=== PATIENT | female | born 1970 | race Caucasian/White ===

== ENCOUNTER 2021-05-01 15:08 | Emergency (ER) | payer OTHER, MEDICAID, SELFPAY ==
[2021-05-01 15:32] VITALS: BP 138/93; PULSE 82; RESP 28; TEMP 36.3; O2SAT 100
--- NOTE | 2021-05-01 15:41 | DI.CT.S_ITS ---
PROCEDURE: CT HEAD/BRAIN WO CON INDICATIONS: WORST headache of life sudden onset right side TECHNIQUE: Noncontrast 4.5 mm thick angled axial sections acquired from the foramen magnum to the vertex, with coronal and sagittal reformats. For radiation dose reduction, the following was used: automated exposure control, adjustment of mA and/or kV according to patient size. COMPARISON: None. FINDINGS: Image quality: Excellent. CSF spaces: Basal cisterns are patent. No extra-axial fluid collections. Ventricles are normal in size and shape. Brain: No midline shift. No intracranial masses or hemorrhage. Hunter-white matter interface is normal. Skull and face: Calvarium and visualized facial bones are intact, without suspicious lesions. Sinuses: Visualized sinuses and mastoids are clear. IMPRESSION: No trauma found, source of very severe headache not identified. Dictated by: Sabino Murphy M.D. on 05/01/2021 at 15:35 Approved by: Sabino Murphy M.D. on 05/01/2021 at 15:35
--- NOTE | 2021-05-01 15:54 | ED_ITS ---
HPI - Headache General Chief Complaint: Headache Stated Complaint: RIGHT SIDE OF NECK Time Seen by Provider: 05/01/21 15:41 Source: patient and family Mode of arrival: Wheelchair Limitations: no limitations History of Present Illness HPI Narrative: Patient is a 51-year-old female who has a history of migraines who presents with sudden-onset worst headache of her life. She apparently was cleaning her friends toilet bowl that had a ring around she used multiple chemicals and she was scrubbing in it suddenly came on. It is on the right side of her head. She was able to leave the bathroom and lying on the floor but progressively got worse. She is crying tearful and holding her head now she is not on any anticoagulation or anti-platelet medication. This is the worst headache of her life. This is very atypical of her migraine headache. Daughter thought she saw some swelling on the right side of her neck. MD Complaint: headache Onset (ago): hour(s) Onset description: sudden Location: right Severity: severe Severity scale (1-10): >10 Quality: sharp, squeezing and constant Relieving factors: nothing Exacerbating factors: none Related Data Home Medications Medication Instructions Recorded Confirmed amitriptyline 25 mg PO HS #0 10/30/16 paroxetine HCl [Paxil] 20 mg PO QDAY #0 10/30/16 Allergies Allergy/AdvReac Type Severity Reaction Status Date / Time lidocaine Allergy Verified 05/01/21 16:06 Review of Systems Review of Systems Narrative: GENERAL: Denies chills, fatigue, malaise, fever, sweats, travel HEENT: Denies sinus pain, ear pain, sore throat, difficulty swallowing, neck pain RESPIRATORY: Denies dyspnea, cough, wheezing, hemoptysis, sputum. CARDIOVASCULAR: Denies chest pain, palpitations, orthopnea, edema GASTROINTESTINAL: Denies nausea, vomiting, abdominal pain, diarrhea, constipation, melena. : Denies dysuria, frequency, incontinence, hematuria, urinary retention, flank pain. MUSCULOSKELETAL: Denies weakness, joint pain, or bony pain SKIN: No rash, no erythema, no pruritus NEUROLOGIC: See HPI PSYCHIATRIC: No concerning psychosocial issues. 12 point review of systems is negative except for those stated above and HPI Patient History Medical History (Updated 05/01/21 @ 18:29 by Molly Daigle DO) Migraines, neuralgic Social History Smoking Status: Current every day smoker Smoking Status: Current every day smoker alcohol intake frequency: 0-2 drinks per day Substance Use Type: does not use Exam Initial Vital Signs Initial Vital Signs: Vital Signs Temperature 97.3 F L 05/01/21 15:32 Pulse Rate 82 05/01/21 15:32 Respiratory Rate 28 H 05/01/21 15:32 Blood Pressure 138/93 H 05/01/21 15:32 Pulse Oximetry 100 05/01/21 15:32 GENERAL: Alert female crying moaning holding right-sided overhead HEENT: Head atraumatic,EOMI, pupils reactive, face symmetric, moist mucous membranes, no bruits on the right neck CARDIOVASCULAR: Regular rate and rhythm without murmurs, rubs or gallops. RESPIRATORY: Breath sounds equal bilaterally, no wheezes rales or rhonchi. ABDOMEN: Soft, nontender. Normoactive bowel sounds all 4 quadrants. No guarding or rebound. EXTREMITIES: Normal range of motion, no clubbing or edema. Neurovascularly intact NEUROLOGICAL: Alert and oriented x4.Normal gait and speech. Cranial nerves II through XII grossly intact. SKIN: Warm, dry, no laceration, no petechiae, no rashes or lesions. Course Orders Ordered: Discontinued Medications Diphenhydramine HCl (Diphenhydramine 50 Mg/Ml Vial) 50 mg IV NOW ONE Stop: 05/01/21 15:47 Last Admin: 05/01/21 16:07 Dose: 50 mg Documented by: [email or web address] Sodium Chloride (Normal Saline 0.9%) 1,000 mls @ 1,000 mls/hr IV BOLUS ONE Stop: 05/01/21 16:45 Last Infusion: 05/01/21 17:45 Dose: 0 mls/hr Documented by: [email or web address] Admin: 05/01/21 16:06 Dose: 1,000 mls/hr Documented by: [email or web address] Ketorolac Tromethamine (Ketorolac 30 Mg/Ml Vial) 30 mg IV NOW ONE Stop: 05/01/21 15:47 Last Admin: 05/01/21 16:07 Dose: 30 mg Documented by: [email or web address] Prochlorperazine (Prochlorperazine 10 Mg/2 Ml Vial) 10 mg IV NOW ONE Stop: 05/01/21 15:47 Last Admin: 05/01/21 16:07 Dose: 10 mg Documented by: [email or web address] Vital Signs Vital signs: Vital Signs - 8 hr 05/01/21 15:32 05/01/21 17:49 Temperature 97.3 F L Pulse Rate 82 66 Respiratory Rate 28 H 14 Blood Pressure 138/93 H 116/58 L Pulse Oximetry 100 100 MDM - Headache Lab Data Attestation: I reviewed the patient's lab results. Result diagrams: 05/01/21 15:53 05/01/21 15:53 Labs: Lab Results 05/01/21 05/01/21 Range/Units 15:53 15:53 WBC 11.8 H (4.5-11.0) X10^3/uL RBC 4.91 (4.0-5.2) X10^6/uL Hgb 13.1 (12.0-16.0) g/dL Hct 41.0 (36-46) % MCV 83.6 (80-100) fL MCH 26.7 (26-34) PG MCHC 31.9 (30-36) % RDW 13.9 (11.6-14.8) % Plt Count 218 (150-400) X10^3/uL Neut % (Auto) 64.2 (50-75) % Lymph % (Auto) 24.6 L (25-40) % Mcpherson % (Auto) 8.3 (3-14) % Eos % (Auto) 2.2 (2-4) % Baso % (Auto) 0.7 (0-2) % Neut # (Auto) 7600 H (2296-8898) /uL Lymph # (Auto) 2900 (0600-1594) /uL Mcpherson # (Auto) 1000 H (0-900) /uL Eos # (Auto) 300 (0-450) /uL Baso # (Auto) 100 (0-100) /uL Sodium 137 (137-145) mmol/L Potassium 4.2 (3.4-5.1) mmol/L Chloride 104 (98-107) mmol/L Carbon Dioxide 28 (22-32) mmol/L BUN 7 (7-17) mg/dL Creatinine 0.69 (0.52-1.04) mg/dL Estimated GFR > 60.0 (>60) mL/min BUN/Creatinine Ratio 10.1 (6-22) Glucose 109 H (70-100) mg/dL Calcium 9.6 (8.4-10.2) mg/dL Total Bilirubin 0.2 (0.2-1.3) mg/dL AST 25 (14-36) IU/L ALT 19 (<35) IU/L Alkaline Phosphatase 108 (38-126) U/L Total Protein 7.0 (6.3-8.2) g/dL Albumin 3.9 (3.5-5.0) g/dL Globulin 3.1 (1.7-4.1) g/dL Albumin/Globulin Ratio 1.3 (1.0-2.8) Imaging Data CT scan - head: Radiologist's Impression: PROCEDURE: CT HEAD/BRAIN WO CON INDICATIONS: WORST headache of life sudden onset right side TECHNIQUE: Noncontrast 4.5 mm thick angled axial sections acquired from the foramen magnum to the vertex, with coronal and sagittal reformats. For radiation dose reduction, the following was used: automated exposure control, adjustment of mA and/or kV according to patient size. COMPARISON: None. FINDINGS: Image quality: Excellent. CSF spaces: Basal cisterns are patent. No extra-axial fluid collections. Ventricles are normal in size and shape. Brain: No midline shift. No intracranial masses or hemorrhage. Hunter-white matter interface is normal. Skull and face: Calvarium and visualized facial bones are intact, without suspicious lesions. Sinuses: Visualized sinuses and mastoids are clear. IMPRESSION: No trauma found, source of very severe headache not identified. Dictated by: Sabino Murphy M.D. on 05/01/2021 at 15:35 MDM Narrative Medical decision making narrative: Patient initially had quite severe sudden- onset headache on the right side concern for hemorrhage. Fortunately her CT was negative. She does have a history of migraine headaches she was given the migraine cocktail which seemed to help significantly. She slept and felt much better. Daughter was asking for a CT angiogram I did offer it to the patient however patient opted not to have it done at this time. I have little concern for aneurysm. I think she was exposed to a number of chemicals which is lead to severe headache she does have a history of migraines as well and it resolved with a migraine cocktail. Discharge Plan Departure Patient Disposition: Home Clinical Impression: Migraine Instructions: DI for Migraine Activity Restrictions/Additional Instructions: *You have been diagnosed with migraine headache *What to do: I believe here headache was induced today by chemicals. I am glad that you are feeling better. You may need more testing done if your headache worsens or you have more frequent migraines. At this time I recommend he go home and rest *Continue to take medications as directed *Follow up with your primary care provider in 2-3 days *Return to ER if you should have worsening headache weakness numbness tingling persistent vomiting or any new, worsening or concerning symptoms Prescriptions: No Action amitriptyline 25 MG tablet 25 mg PO HS Qty: 0 RF: 0 paroxetine HCl [Paxil] 20 MG tablet 20 mg PO QDAY Qty: 0 RF: 0 Referrals: [facility] [Outside]
[2021-05-01] MEDS: SODIUM CHLORIDE 0.9% 1,000 ML 1000 ML IV (16:06)
[2021-05-01] MEDS: diphenhydrAMINE 50 MG/ML VIAL IV (16:07)
[2021-05-01] MEDS: KETOROLAC 30 MG/ML VIAL IV (16:07)
[2021-05-01] MEDS: PROCHLORPERAZINE 10 MG/2 ML VIAL IV (16:07)
[2021-05-01 17:07] LABS: Add Manual Diff / Slide Review NO; Basophils Absolute Auto 100 /uL (0-100); Basophils Percent Auto 0.7 % (0-2); Eosinophils Absolute Auto 300 /uL (0-450); Eosinophils Percent Auto 2.2 % (2-4); Hemoglobin 13.1 g/dL (12.0-16.0); Lymphocytes Absolute Auto 2900 /uL (1100-4500); Lymphocytes Percent Auto 24.6 % (25-40); Mean Corpuscular HGB Conc 31.9 % (30-36); Mean Corpuscular Hemoglobin 26.7 PG (26-34); Mean Corpuscular Volume 83.6 fL (80-100); Monocytes Absolute Auto 1000 /uL (0-900); Monocytes Percent Auto 8.3 % (3-14); Neutrophils Absolute Auto 7600 /uL (1500-7000); Neutrophils Percent Auto 64.2 % (50-75); Platelet Count 218 X10^3/uL (150-400); Red Blood Cell Count 4.91 X10^6/uL (4.0-5.2); Red Cell Distribution Width 13.9 % (11.6-14.8); White Blood Cell Count 11.8 X10^3/uL (4.5-11.0)
[2021-05-01 17:13] LABS: Alanine Aminotransferase 19 IU/L (<35); Albumin 3.9 g/dL (3.5-5.0); Albumin Globulin Ratio 1.3 (1.0-2.8); Alkaline Phosphatase 108 U/L (38-126); Aspartate Aminotransferase 25 IU/L (14-36); BUN Creatinine Ratio 10.1 (6-22); Bilirubin Total 0.2 mg/dL (0.2-1.3); Blood Urea Nitrogen 7 mg/dL (7-17); Calcium 9.6 mg/dL (8.4-10.2); Carbon Dioxide 28 mmol/L (22-32); Chloride 104 mmol/L (98-107); Estimated Glomerular Filt Rate > 60.0 mL/min (>60); Globulin 3.1 g/dL (1.7-4.1); Glucose 109 mg/dL (70-100); HEMOLYSIS 20 (0-50); Potassium 4.2 mmol/L (3.4-5.1); Sodium 137 mmol/L (137-145)
[2021-05-01 17:49] VITALS: BP 116/58; PULSE 66; RESP 14; O2SAT 100
== END 2021-05-01 18:30 | disposition home or self-care (01) ==
PROVIDERS: Emergency Provider Emergency Medicine
DX: G43.909 Migraine, unspecified, not intractable, without status migrainosus (principal)
CPT/HCPCS: 36415; 70450; 80053; 85025; 96361; 96374; 96375; 99284; J0780; J1200; J1885

== ENCOUNTER 2021-11-04 17:26 | Emergency (ER) | payer OTHER, MEDICAID, SELFPAY ==
[2021-11-04 17:33] VITALS: BP 136/72; PULSE 89; RESP 16; TEMP 36.6; O2SAT 100; BMI 24.1
--- NOTE | 2021-11-04 17:38 | DI.RAD.S_ITS ---
PROCEDURE: XR TOE RT MIN 2V INDICATIONS: toe pain after fall TECHNIQUE: An AP view of the foot and views of the great toe(s) acquired. COMPARISON: None. FINDINGS: Bones: No fractures or dislocations. No suspicious bony lesions. Mild hallux valgus deformity is seen, with associated focal degenerative change of the 1st metatarsophalangeal joint. Milder degenerative changes are seen elsewhere. Soft tissues: Soft tissue swelling is seen of the great toe. IMPRESSION: There is soft tissue swelling of the great toe. No displaced fractures are seen. Mild hallux valgus deformity, with associated degenerative changes. Dictated by: Papito Mcmahon M.D. on 11/04/2021 at 17:26 Approved by: Papito Mcmahon M.D. on 11/04/2021 at 17:27
--- NOTE | 2021-11-04 18:23 | ED_ITS ---
HPI - Fall General Chief Complaint: Fall Stated Complaint: fall last night, toe and knee pain Time Seen by Provider: 11/04/21 18:02 Source: patient Mode of arrival: Ambulatory History of Present Illness HPI Narrative: Patient is a 51-year-old female here for evaluation of an injury that she sustained to her right great toe. States that yesterday she was carrying a box. She hit the front of her toe on the step. She fell forward. Sustained some abrasions to her knees since that time has had discomfort to her right great toe. There are also some abrasions of the toe. She also states that she has bumps on the top of her foot. The bumps are itching. They have been there for approximately 1 year. She is now starting to get some similar bumps on her right forearm. She has tried topical antifungal creams without any improvement. Related Data Home Medications Medication Instructions Recorded Confirmed amitriptyline 25 mg tablet 25 mg PO HS #0 10/30/16 paroxetine HCl 20 mg tablet (Paxil) 20 mg PO QDAY #0 10/30/16 Previous Rx's Medication Instructions Recorded terbinafine HCl 250 mg tablet 250 mg PO DAILY #14 tab 11/04/21 Allergies Allergy/AdvReac Type Severity Reaction Status Date / Time lidocaine Allergy Verified 11/04/21 17:35 Review of Systems Musculoskeletal Musculoskeletal: Reports system reviewed and no additional complaints, except as documented and Reports as per HPI Integumentary/Breasts Skin/Breast: Reports system reviewed and no additional complaints, except as documented and Reports as per HPI Neurologic Neurologic: Reports system reviewed and no additional complaints, except as documented Hematologic/Lymphatic On Anticoagulants: No Patient History Medical History Migraines, neuralgic Social History Smoking Status: Current every day smoker Smoking Status: Current every day smoker alcohol intake frequency: holidays/special occasions only Substance Use Type: does not use Exam Initial Vital Signs Initial Vital Signs: Vital Signs Temperature 97.9 F 11/04/21 17:33 Pulse Rate 89 11/04/21 17:33 Respiratory Rate 16 11/04/21 17:33 Blood Pressure 136/72 11/04/21 17:33 Pulse Oximetry 100 11/04/21 17:33 HENTX Head: normal to inspection and normocephalic Resp Effort & Inspection: normal respiratory effort Cardio Pulses: dorsalis pedis present on the right Skin Other: Patient with 2 superficial abrasions on the great toe medial aspect. No active bleeding. No surrounding erythema. She also has bumps on the dorsum of the foot. There are no vesicles. No pustules. Neuro Sensory Exam: no sensory deficits noted Extrem Other: Patient has tenderness to palpation at the MTP joint of the right great toe. Her 2nd toe is unremarkable. Course Orders Ordered: ED Orders 11/04/21 17:38 XR toe RT min 2V Stat Discontinued Medications Bacitracin (Bacitracin Oint 0.9 Gm Pckt) 1 applic TOP NOW ONE Stop: 11/04/21 18:45 Last Admin: 11/04/21 18:51 Dose: 1 applic Documented by: Vital Signs Vital signs: Vital Signs - 8 hr 11/04/21 17:33 Temperature 97.9 F Pulse Rate 89 Respiratory Rate 16 Blood Pressure 136/72 Pulse Oximetry 100 MDM - Fall Imaging Data Extremity x-ray #1: Radiologist's Impression: [address] [address] XRay Report Signed Patient: Cary Bowman MR#: [id number] : 1970 Acct:[id number] Age/Sex: 51 / F Date of Service: 11/04/21 Loc: ED Accession Number: [id number] ?? Procedure: XR toe RT min 2V Ordering Provider: Dakota Mai MD PROCEDURE:? XR TOE RT MIN 2V ? INDICATIONS:? toe pain after fall ? TECHNIQUE:? An AP view of the foot and views of the great toe(s) acquired.? ? COMPARISON:? None. ? FINDINGS:? ? Bones:? No fractures or dislocations.? No suspicious bony lesions.? ? Mild hallux valgus deformity is seen, with associated focal degenerative change of the 1st metatarsophalangeal joint.? Milder degenerative changes are seen elsewhere.? ? Soft tissues:? Soft tissue swelling is seen of the great toe. ? ? IMPRESSION:? There is soft tissue swelling of the great toe. ? No displaced fractures are seen. ? Mild hallux valgus deformity, with associated degenerative changes. ? ? Dictated by: Mitch OrtizD. on 11/04/2021 at 17:26 ? ? Approved by: Papito Mcmahon M.D. on 11/04/2021 at 17:27? [facility] Narrative Medical decision making narrative: The x-ray does not show any signs of fractures. She is neurovascularly intact. The abrasions on her toe knee no intervention other than topical antibiotic ointment. The bumps on the top of her foot are consistent with tinea pedis. Since she has tried topical medications that improvement will start her on oral medications. She was given a orthopedic shoe for her comfort. She was given care instructions and return precautions. She expressed understanding and agreement Discharge Plan Departure Patient Disposition: Home Clinical Impression: Injury of toe, Abrasion of skin, Tinea pedis of right foot Instructions: Athlete's Foot (Alternative Therapy), Toe Sprain Activity Restrictions/Additional Instructions: The orthopedic shoe is for your comfort. You can also consider stef taping the great toe to the 2nd toe as this may help supported. Keep the abrasions covered with antibiotic ointment. Contact your primary doctor for follow-up. Return to the emergency department for any new or worsening symptoms Prescriptions: New terbinafine HCl 250 mg tablet 250 mg PO DAILY Qty: 14 0RF No Action amitriptyline 25 MG tablet 25 mg PO HS Qty: 0 0RF paroxetine HCl [Paxil] 20 MG tablet 20 mg PO QDAY Qty: 0 0RF
[2021-11-04] MEDS: BACITRACIN OINT 0.9 GM PCKT 1 APPLIC TOP (18:51)
== END 2021-11-04 19:04 | disposition home or self-care (01) ==
PROVIDERS: Emergency Provider Emergency Medicine
DX: S90.414A Abrasion, right lesser toe(s), initial encounter (principal); B35.3 Tinea pedis; F17.200 Nicotine dependence, unspecified, uncomplicated; W22.09XA Striking against other stationary object, initial encounter; Y93.89 Activity, other specified
CPT/HCPCS: 73660; 99282; 99283